=== PATIENT | female | born 2000 | race Two or more races ===

== ENCOUNTER → 2020-01-12 | Outpatient (CLI) | payer OTHER ==
[~2020-01-12] MED LIST: PRENATAL TABLE1 EAC1 PO
== END | disposition home or self-care (01) ==
LOC: OBS/DEL 06:14
PROVIDERS: ATTEND Obstetrics & Gynecology
DX: O47.1 False labor at or after 37 completed weeks of gestation (principal)

== ENCOUNTER 2020-01-13 06:35 | Inpatient (IN) | payer OTHER ==
[~2020-01-13] VITALS: Ht 152.4 cm; Wt 72.1 kg
== END 2020-01-15 16:22 | disposition home or self-care (01) | DRG 807 ==
LOC: OB/GYN 06:35 → LDR 06:35 → OB/GYN 09:07
PROVIDERS: ADMIT Obstetrics & Gynecology; ATTEND Obstetrics & Gynecology
PROC: 10E0XZZ Delivery of Products of Conception, External Approach (ICD-10-PCS; principal; 2020-01-13)
PROC: 4A1HXFZ Monitoring of Products of Conception, Cardiac Rhythm, External Approach (ICD-10-PCS; 2020-01-13)
DX: O80 Encounter for full-term uncomplicated delivery (principal); Z37.0 Single live birth; Z3A.39 39 weeks gestation of pregnancy